=== PATIENT | male | born 1975 | race Caucasian/White ===

== ENCOUNTER 2019-08-08 08:17 | Day surgery (SDC) | payer OTHER ==
[2019-08-07 17:01] VITALS: BMI 48.6
[2019-08-08] MEDS ORDERED: LIDOCAINE 1%-EPI 1:100,000 30 ML MDV IJ ONE (08:39)
[2019-08-08] MEDS ORDERED: LIDOCAINE HCL 1%, 10 MG/ML (20ML VIAL) ONE (08:42)
[2019-08-08] MEDS ORDERED: LIDOCAINE HCL 1% EPINEPHRINE 1:200,000 30 ML VIAL (PF) ONE (10:55)
[2019-08-08] MEDS ORDERED: LIDOCAINE HCL/PF 2% SDV 5ML VIAL ONE (11:16)
[2019-08-08] MEDS ORDERED: MIDAZOLAM HCL 2 MG/2 ML SINGLE DOSE VIAL ONE ×3 (11:17→11:39)
[2019-08-08] MEDS ORDERED: PROPOFOL 20 ML ONE ×2 (11:17)
[2019-08-08] MEDS ORDERED: ceFAZolin SODIUM 1 GM VIAL ONE (11:23)
[2019-08-08] MEDS ORDERED: ceFAZolin SODIUM 1 GM VIAL IVPB ONE (11:26)
[2019-08-08] MEDS ORDERED: BUPIVACAINE HCL/PF 0.5% (5MG/ML) 10 ML VIAL IJ ONE ×2 (11:30)
[2019-08-08] MEDS ORDERED: KETOROLAC TROMETHAMINE 30 MG/1 ML VIAL ONE (11:57)
[2019-08-08] MEDS ORDERED: ONDANSETRON 4 MG/2 ML VIAL IVPUSH PRN (12:39)
[2019-08-08] MEDS ORDERED: oxyCODONE HCL 5 MG TABLET PO PRN (12:39)
[2019-08-08] MEDS ORDERED: LACTATED RINGERS SOLUTION 1,000 ML IV SCH (12:45)
[2019-08-08 13:48] VITALS: TEMP 98
[2019-08-08 15:00] VITALS: BP 130/80; PULSE 90
--- NOTE | 2019-08-08 20:06 | OP ---
DATE OF OPERATION: 08/08/2019 SURGEON: Grzegorz Harris DPM PREOPERATIVE DIAGNOSIS: M21.61--right bunion with hallux valgus. POSTOPERATIVE DIAGNOSIS: M21.61--right bunion with hallux valgus. PROCEDURE: 29760--Ouxoc bunionectomy with ligament transfer. ANESTHESIA: General. DESCRIPTION OF PROCEDURE: Under general anesthesia and the surgical scrub with Betadine scrub and solution x2, the patient was draped using sterile technique. After 3 minute of right limb elevation, a right ankle tourniquet was inflated to 250 mmHg pressure for 60 minutes. Inspection of the right foot showed a large bunion with hallux valgus with significant exostosis on the dorsum of the bunion. Using a No. 15 surgical blade, a linear longitudinal incision was made on the right foot over the first metatarsophalangeal joint. The incision was deepened through fascia and retracted. The extensor brady apparatus was longitudinally incised and reflected laterally and then the joint capsule was dorsally excised in a longitudinal fashion. Medial and lateral sesamoid ligaments were cut and the head of the first metatarsal and first metatarsophalangeal joint were exposed in the wound. Using a McGlamry elevator, the plantar plate attachments were sectioned from the anatomic neck of the first metatarsal and the adductor hallucis tendon and conjoint ligament were sectioned from the lateral attachments to the fibular sesamoid. Inspection of the joint showed significant chondromalacia and some gouty tophus formation on the dorsal lateral and medial surfaces of the first metatarsal head. A large medial eminence was prominent along with a large dorsal spurring at the metatarsal head. Using a sagittal saw, the large medial eminence and the dorsal spurring were resected. The bone was rasped smooth and then the wound was copiously irrigated with sterile saline. Judging by the position of the first metatarsal relative to the second, it was decided not to osteotomize the bone, but to convert the procedure to a bunionectomy with soft tissue correction. The joint capsule was reapproximated and closed over the first metatarsophalangeal joint but prior to doing so a drill hole was placed in the anatomic neck cortical bone of the first metatarsal and then the medial joint capsule was transpositioned more proximally to hold the toe in a more rectus position. A drill hole was placed through the bone and using FiberTape the joint capsule was sutured in a new corrected position. The hallux now in normal anatomic position and the joint capsule completely repaired, the long extensor tendon was positioned in a normal anatomic position and sutured with 3-0 Vicryl suture. Range of motion was tested at the first metatarsophalangeal joint and was found to be improved with passive dorsiflexion of approximately 65 degree with respect to the plantar aspect of foot. The superficial fascia was reapproximated and closed with 4-0 Vicryl suture and then skin was reapproximated and closed with 4-0 nylon simple interrupted sutures. The ankle tourniquet was deflated after 60 minutes of inflation. Vascular perfusion immediately returned to all 5 digits, so a dry sterile dressing was applied to the right foot. The patient tolerated the surgical procedure well and left the operating room stable, alert, awake and in no pain. KAMRAN KRUSE/[id number]
--- NOTE | 2019-08-09 16:27 | PATH ---
Surgical Pathology Report Patient Name: MARIA E PINO [facility]. Rec. #: [id number] /Age/Gender: 1975 (Age: 44) / M Account: [id number] Location: [facility] SURGICAL Taken: 08/08/2019 Received: 08/08/2019 Reported: 08/09/2019 Physicians: Grzegorz Harris M.D. Specimen(s) Received RIGHT FOOT BUNIONECTOMY Clinical History Right bunion Final Diagnosis RIGHT METATARSAL BUNION, RESECTION: PORTIONS OF CARTILAGE AND BONE WITH DEGENERATIVE CHANGE. FIBROCONNECTIVE TISSUE WITH FIBROSIS. Electronically Signed Natali Lopez M.D. Gross Description Received in formalin labeled "right metatarsal bunion," is a 4.5 x 3.0 x 0.5 cm aggregate of stone bone and soft tissue fragments. Axle Polisher sections are submitted in one cassette, following decalcification. /08/08/2019 saudi/08/08/2019
== END 2019-08-08 14:30 | disposition home or self-care (01) ==
LOC: JASU-SURG 08:17
PROVIDERS: ATTEND Podiatrist Foot Surgery
PROC: 0LXV0ZZ Transfer Right Foot Tendon, Open Approach (ICD-10-PCS; 2019-08-08)
PROC: 0QSN04Z Reposition Right Metatarsal with Internal Fixation Device, Open Approach (ICD-10-PCS; principal; 2019-08-08 11:00)
DX: M20.11 Hallux valgus (acquired), right foot (principal); M21.611 Bunion of right foot
CPT/HCPCS: 88304-TC; 88311-TC; 94760

== ENCOUNTER 2020-04-15 11:46 | Emergency (ER) | payer OTHER ==
--- NOTE | 2020-04-15 11:49 | PDOC ---
History of Present Illness - General Chief Complaint: Bleeding from Anus Stated Complaint: RECTAL BLEED Time Seen by Provider: 04/15/20 11:49 - History of Present Illness Initial Comments: 04/15/20 14:06 Chief complaint: Bright red blood per rectum HPI: Patient noted bright red blood dripping from rectum this morning while he w as on the toilet. He denies straining, states that the stool is soft, and has no rectal pain. He has had hemorrhoids in the past. Review of systems: No lightheadedness, dizziness, palpitations, visual or focal neurologic symptoms, unsteadiness of gait. No chest pain, shortness of breath, abdominal pain, nausea, vomiting, diarrhea or constipation, urinary tract symptoms. Past medical history: Left kidney cancer with surgical removal part of the kidney, high blood pressure, elevated cholesterol, morbid obesity, peptic ulcer disease, bunionectomy, rotator cuff surgery x2, hernia repair. Social/family history reviewed and noncontributory Physical exam: Alert and oriented, obese, no acute distress, cooperative Afebrile, vital signs normal except for mild blood pressure elevation No pallor or icterus. PERRLA, conjunctivae clear, ENT clear Neck supple without bruit mass or nodes Lungs clear CV regular without murmur rub or gallop. 90 and regular. Abdomen soft, nontender, without mass or organomegaly. No CVAT Rectal exam: There is an ulcerated external hemorrhoid at 9:00. Small amount of serosanguineous fluid, no diogo bleeding. No masses or tenderness on internal exam. Stool light brown. Impression: Bright red blood per rectum, most likely from ulcerated hemorrhoid is visualized Plan: CBC and stool guaiac. Further evaluation and treatment depending on results Past History - Medical History Allergies/Adverse Reactions: Allergies Allergy/AdvReac Type Severity Reaction Status Date / Time No Known Drug Allergies Allergy Verified 04/15/20 11:53 Home Medications: Ambulatory Orders Losartan Potassium [Cozaar] 100 mg PO DAILY 05/20/14 Amlodipine Besylate [Norvasc -] 1 tab PO DAILY 09/01/14 Azathioprine 50 mg PO QID 07/02/19 Hydroxychloroquine Sulfate 50 mg PO TID 07/02/19 Morphine Sulfate [Morphine Sulfate ER] 60 mg PO BID 07/02/19 Pantoprazole Sodium 40 mg PO DAILY 07/02/19 Morphine *Immediate Release* [Msir -] 30 mg PO Q4H 08/08/19 Anemia: Yes Asthma: No Cancer: No Cardiac Disorders: No CVA: No COPD: No (Sarcoidosis) CHF: No Dementia: No Diabetes: No GI Disorders: Yes (BLEEDING ULCER) Disorders: No HTN: No Hypercholesterolemia: No Liver Disease: Yes (ELEVATED LIVER ENZYMES) Seizures: No Thyroid Disease: No - Surgical History Abdominal Surgery: Yes (RIGHT HERNIA REPAIR) Appendectomy: No Cardiac Surgery: No Cholecystectomy: No Lung Surgery: No Neurologic Surgery: No Orthopedic Surgery: Yes (ROTATOR CUFF - LEFT) - Psycho-Social/Smoking History Smoking History: Never smoked ED Treatment Course - LABORATORY CBC & Chemistry Diagram: 04/15/20 13:00 Medical Decision Making - Medical Decision Making 04/15/20 14:05 H&H 11 and 32. Stool light brown, guaiac negative. No sign of active bleeding on exam. Discharge - Discharge Information Problems reviewed: Yes Clinical Impression/Diagnosis: Ulcerated external hemorrhoids Condition: Stable Disposition: HOME - Admission No - Follow up/Referral Referrals: Timoteo Mcmahon MD [Staff Physician] - 1 week - Patient Discharge Instructions Patient Printed Discharge Instructions: DI for Hemorrhoids Additional Instructions: Wear tight fitting underwear with a bulky pad to apply pressure if the bleeding persists. Keep stool soft and avoid straining to avoid further irritation. May use a stool softener, Bene fiber, or fiber rich foods. To keep the pressure in that area low, stay off your feet today is much as possible. Follow-up with primary physician or Dr. Mcmahon, surgeon, if bleeding persists or pain develops. Return to the ER immediately if bleeding is more heavy or there are other symptoms such as lightheadedness, dizziness, chest pain, shortness of breath, or abdominal pain. - Post Discharge Activity
--- OUTSIDE RECORDS SUMMARY | 2020-04-15 11:58 | XMS ---
:1975 Author Organization [facility] Support Name Relationship Address Phone [employer] Unavailable [address] [place] [address] [employer] Unavailable [address] [place] [address] [place] [address] [address]IR[address] [place] [address] [employer] Unavailable Unavailable Unavailable [address] [place] [address] Re-disclosure Warning The records that you are about to access may contain information from federally- assisted alcohol or drug abuse programs. If such information is present, then the following federally mandated warning applies: This information has been disclosed to you from records protected by federal confidentiality rules (42 CFR part 2). The federal rules prohibit you from making any further disclosure of this information unless further disclosure is expressly permitted by the written consent of the person to whom it pertains or as otherwise permitted by 42 CFR part 2. A general authorization for the release of medical or other information is NOT sufficient for this purpose. The Federal rules restrict any use of the information to criminally investigate or prosecute any alcohol or drug abuse patient.The records that you are about to access may contain highly sensitive health information, the redisclosure of which is protected by Article 27-F of the [facility] Public Health law. If you continue you may haveaccess to information: Regarding HIV / AIDS; Provided by facilities licensed or operated by the [facility] Office of Mental Health; or Provided by the [facility] Office for People With Developmental Disabilities. If such information is present, then the following [facility] mandated warning applies: This information has been disclosed to you from confidential records which are protected by state law. State law prohibits you from making any further disclosure of this information without the specific written consent of the person to whom it pertains, or as otherwise permitted by law. Any unauthorized further disclosure in violation of state law may result in a fine or shelter sentence or both. A general authorization for the release of medical or other information is NOT sufficient authorization for further disclosure. Insurance Providers Payer name Policy type Policy ID Covered Covered democrat's Policy P pushpa / Coverage democrat ID relationship to Live Inf ormation type live [facility] [id number] [place] [id number] PLANS [place] [id number] 1 [id number] 1 [facility] [id number] [place] [id number] PLAN HMO Results ID Date Data Source [id number] 01/07/2020 12:46:00 PM EDT [facility] Name Value Range Interpretation Code Description Data Yajaira rce(s) Supporting Document(s ) SARS-COV-2 [facility] PCR This lab was ordered by [facility] [address] [facility] and reported by [facility]. Procedure
[2020-04-15 12:03] VITALS: BP 151/104; PULSE 104; TEMP 98.9; BMI 45.6
[2020-04-15 13:22] LABS: HEMATOCRIT 32.9 % (35.4-49); HEMOGLOBIN 11.2 GM/dl (11.7-16.9); MCH 29.9 pg (25.7-33.7); MCHC 34.1 g/dl (32.0-35.9); MEAN CELL VOLUME 87.7 fl (80-96); MEAN PLT VOLUME 7.2 fl (7.5-11.1); PLATELET COUNT 321 K/MM3 (134-434); RBC 3.76 M/mm3 (4.00-5.60); RDW 21.5 % (11.9-15.9); WHITE BLOOD COUNT 3.1 K/mm3 (4.0-10.8)
[2020-04-15 13:26] LABS: ADD RBC MORPHOLOGY YES
[2020-04-15 14:18] LABS: ANISOCYTOSIS 2+; PLATELET ESTIMATE ADEQUATE
== END 2020-04-15 13:14 | disposition home or self-care (01) ==
LOC: FER 11:46
DX: K64.8 Other hemorrhoids (principal)
CPT/HCPCS: 36415; 82272; 85025; 99283-25

== ENCOUNTER 2020-08-27 05:23 | Day surgery (SDC) | payer OTHER ==
[2020-08-26 09:52] VITALS: BMI 47.1
[2020-08-27 09:40] VITALS: TEMP 97.8
[2020-08-27 10:12] VITALS: BP 116/73; PULSE 89
== END 2020-08-27 10:03 | disposition home or self-care (01) ==
LOC: JASU-ENDO 05:23
PROVIDERS: ATTEND Internal Medicine Gastroenterology
PROC: 0DBK8ZX Excision of Ascending Colon, Via Natural or Artificial Opening Endoscopic, Diagnostic (ICD-10-PCS; 2020-08-27)
PROC: 0DBK8ZX Excision of Ascending Colon, Via Natural or Artificial Opening Endoscopic, Diagnostic (ICD-10-PCS; principal; 2020-08-27 09:00)
DX: Z12.11 Encounter for screening for malignant neoplasm of colon (principal); D12.2 Benign neoplasm of ascending colon; Z86.010 Personal history of colon polyps; Z80.0 Family history of malignant neoplasm of digestive organs; K64.8 Other hemorrhoids
CPT/HCPCS: 88305-TC

== ENCOUNTER 2023-09-07 17:28 | Inpatient (IN) | payer OTHER ==
[2023-09-07 17:35] VITALS: BMI 48.6
[2023-09-07] MEDS ORDERED: dilTIAZem HCL 125 MG/25 ML - 25 ML VIAL ONE ×2 (18:09→19:34)
[2023-09-07] MEDS: dilTIAZem HCL 50 MG/10 ML - 10 ML VIAL IVPUSH ONE ×2 (18:30→19:41)
[2023-09-07 18:46] LABS: HEMATOCRIT 40.9 % (35.4-49); HEMOGLOBIN 13.6 G/dL (11.7-16.9); MCH 28.1 pg (25.7-33.7); MCHC 33.3 g/dl (32.0-35.9); MEAN CELL VOLUME 84.2 fl (80-96); MEAN PLT VOLUME 9.2 fl (7.5-11.1); PLATELET COUNT 191.7 10^3/uL (134-434); RBC 4.86 10^6/uL (4.00-5.60); RDW 15.5 % (11.9-15.9); WHITE BLOOD COUNT 6.5 10^3/uL (4.0-10.8)
[2023-09-07 19:01] LABS: PLATELET ESTIMATE ADEQUATE
[2023-09-07 20:49] LABS: ALBUMIN 4.6 g/dl (3.4-5.0); CALCIUM 9.7 mg/dl (8.5-10.1); CREATININE 1.2 mg/dl (0.6-1.3); POTASSIUM 4.2 mmol/L (3.5-5.1)
[2023-09-07 20:50] LABS: BILIRUBIN,TOTAL 0.7 mg/dl (0.2-1)
[2023-09-07] MEDS ORDERED: dilTIAZem HCL 30 MG TABLET ONE (20:52)
[2023-09-07] MEDS: dilTIAZem HCL 60 MG TABLET PO ONE (20:55)
[2023-09-07 21:01] LABS: N-TERMINAL BNP 1879.7 pg/ml (5-125)
[2023-09-07] MEDS ORDERED: morphine SULFATE IMMEDIATE RELEASE 30 MG TAB ONE (23:39)
[2023-09-07] MEDS: morphine SULFATE IMMEDIATE RELEASE 30 MG TAB PO ONE (23:40)
[2023-09-08] MEDS: FUROSEMIDE 40 MG TABLET (FP) PO ONE (02:35)
[2023-09-08] MEDS: LOSARTAN POTASSIUM 50 MG TABLET PO ONE (05:38)
[2023-09-08] MEDS: FUROSEMIDE 40 MG TABLET (FP) PO SCH (05:38)
[2023-09-08] MEDS: INSULIN ASPART SLIDING SCALE (NOVOLOG) 1 VIAL SQ SCH (06:26)
[2023-09-08 06:50] LABS: BASO % 0.8 % (0-2.0); EOS % 5.3 % (0-4.5); HEMATOCRIT 39.2 % (35.4-49); HEMOGLOBIN 13.1 GM/dL (11.7-16.9); MCH 27.9 pg (25.7-33.7); MCHC 33.3 g/dl (32.0-35.9); MEAN CELL VOLUME 83.8 fl (80-96); MEAN PLT VOLUME 8.9 fl (7.5-11.1); MONO % 11.2 % (3.8-10.2); NEUT % 59.7 % (42.8-82.8); PLATELET COUNT 181 10^3/uL (134-434); RBC 4.68 M/mm3 (4.00-5.60); RDW 14.8 % (11.9-15.9); WHITE BLOOD COUNT 5.3 K/mm3 (4.0-10.0)
[2023-09-08 06:58] LABS: POTASSIUM 3.8 mmol/L (3.5-5.1)
[2023-09-08 07:06] LABS: ALBUMIN 3.4 g/dl (3.4-5.0); BLOOD UREA NITROGEN 19.7 mg/dL (7-18); CALCIUM 8.9 mg/dL (8.5-10.1); MAGNESIUM 1.8 mg/dL (1.8-2.4)
[2023-09-08 07:09] LABS: CREATININE 1.1 mg/dL (0.55-1.3); PHOSPHOROUS 3.8 mg/dL (2.5-4.9)
[2023-09-08 07:11] LABS: TOT PROT 6.3 g/dl (6.4-8.2)
[2023-09-08 07:29] LABS: BILIRUBIN,TOTAL 0.7 mg/dL (0.2-1)
[2023-09-08] MEDS ORDERED: HYDROCHLOROTHIAZIDE 25 MG TABLET (FP) PO SCH (10:00)
[2023-09-08] MEDS: METOPROLOL TARTRATE 5 MG/5 ML VIAL IVPUSH ONE ×2 (10:05→13:29)
[2023-09-08] MEDS: amLODIPine BESYLATE 10 MG TABLET (FP) PO SCH (10:05)
[2023-09-08] MEDS: PANTOPRAZOLE 40 MG TABLET PO SCH (10:05)
[2023-09-08] MEDS: APIXABAN 5 MG TABLET PO SCH (10:05)
[2023-09-08] MEDS ORDERED: METOPROLOL TARTRATE 50 MG TABLET (FP) PO SCH ×2 (14:00→22:00)
[2023-09-08] MEDS: METOPROLOL TARTRATE 5 MG/5 ML VIAL IVPUSH PRN (14:19)
[2023-09-08] MEDS: FUROSEMIDE 40 MG/4 ML INJECTABLE VIAL IVPUSH SCH (14:19)
[2023-09-08] MEDS ORDERED: ACETAMINOPHEN 500 MG TABLET (FP) PO PRN (14:35)
[2023-09-08] MEDS: METOPROLOL TARTRATE 50 MG TABLET (FP) PO ONE (14:38)
[2023-09-08] MEDS: PATIENT'S OWN MEDICATION (NON-FORMULARY) (Gabapentin [Gralise] 900 MG Tab.Er.24h) PO SCH (15:23)
[2023-09-08] MEDS: morphine SULFATE IMMEDIATE RELEASE 30 MG TAB PO SCH (15:24)
[2023-09-08] MEDS: GABAPENTIN 400 MG CAPSULE PO SCH (15:53)
[2023-09-08] MEDS: ACETAMINOPHEN 500 MG TABLET (FP) PO ONE (15:54)
[2023-09-08] MEDS: dilTIAZem HCL 50 MG/10 ML - 10 ML VIAL IVPUSH ONE (16:37)
[2023-09-08] MEDS ORDERED: dilTIAZem HCL 50 MG/10 ML - 10 ML VIAL IVPUSH SCH ×2 (17:00→23:00)
[2023-09-08] MEDS: dilTIAZem HCL 50 MG/10 ML - 10 ML VIAL IVPUSH SCH (18:57)
[2023-09-08] MEDS ORDERED: PATIENT'S OWN MEDICATION (NON-FORMULARY) (Gabapentin [Gabapentin] 800 MG Tablet) PO SCH (22:00)
[2023-09-08] MEDS: morphine SULFATE IMMEDIATE RELEASE 30 MG TAB PO PRN (22:07)
[2023-09-09 06:22] LABS: HEMATOCRIT 41.2 % (35.4-49); HEMOGLOBIN 13.7 GM/dL (11.7-16.9); MCH 27.9 pg (25.7-33.7); MCHC 33.2 g/dl (32.0-35.9); MEAN CELL VOLUME 83.8 fl (80-96); MEAN PLT VOLUME 8.4 fl (7.5-11.1); PLATELET COUNT 183 10^3/uL (134-434); RBC 4.92 M/mm3 (4.00-5.60); RDW 14.8 % (11.9-15.9); WHITE BLOOD COUNT 5.5 K/mm3 (4.0-10.0)
[2023-09-09 06:34] LABS: POTASSIUM 3.4 mmol/L (3.5-5.1)
[2023-09-09 06:37] LABS: CALCIUM 9.1 mg/dL (8.5-10.1)
[2023-09-09 06:38] LABS: ALBUMIN 3.4 g/dl (3.4-5.0); BLOOD UREA NITROGEN 21.5 mg/dL (7-18); MAGNESIUM 1.9 mg/dL (1.8-2.4)
[2023-09-09 06:41] LABS: CREATININE 1.2 mg/dL (0.55-1.3); PHOSPHOROUS 4.4 mg/dL (2.5-4.9)
[2023-09-09 06:43] LABS: BILIRUBIN,TOTAL 0.8 mg/dL (0.2-1); TOT PROT 6.3 g/dl (6.4-8.2)
[2023-09-09] MEDS: dilTIAZem HCL 60 MG TABLET PO SCH (09:56)
[2023-09-09] MEDS: POTASSIUM CHLORIDE ORAL LIQUID 20 MEQ/15 ML PO ONE (09:57)
[2023-09-09] MEDS ORDERED: LOSARTAN POTASSIUM 50 MG TABLET PO SCH (10:00)
[2023-09-09] MEDS ORDERED: dilTIAZem HCL 25 MG/5 ML - 5 ML VIAL ONE (14:14)
[2023-09-09] MEDS: hydrOXYzine PAMOATE 50 MG CAPSULE (FP) PO ONE (14:18)
[2023-09-09] MEDS: FUROSEMIDE 40 MG TABLET (FP) PO SCH (14:19)
[2023-09-09 21:12] LABS: COCAINE, UR NEGATIVE (NEGATIVE); METHADONE, UR NEGATIVE (NEGATIVE); URINE BARBITURATES NEGATIVE (NEGATIVE)
[2023-09-09 21:13] LABS: PHENCYCLIDINE,URINE NEGATIVE (NEGATIVE); URINE BENZODIAZEPINES NEGATIVE (NEGATIVE)
[2023-09-09] MEDS: SACUBITRIL/VALSARTAN 49 MG-51 MG TABLET PO SCH (21:13)
[2023-09-09 21:15] LABS: OPIATES, URI POSITIVE (NEGATIVE); URINE AMPHETAMINES NEGATIVE (NEGATIVE)
[2023-09-10] MEDS ORDERED: dilTIAZem HCL 60 MG TABLET PO SCH (06:50)
[2023-09-10 10:16] LABS: HEMATOCRIT 41.3 % (35.4-49); HEMOGLOBIN 13.7 GM/dL (11.7-16.9); MCH 27.8 pg (25.7-33.7); MCHC 33.2 g/dl (32.0-35.9); MEAN CELL VOLUME 83.8 fl (80-96); MEAN PLT VOLUME 8.5 fl (7.5-11.1); PLATELET COUNT 213 10^3/uL (134-434); RBC 4.92 M/mm3 (4.00-5.60); RDW 15.1 % (11.9-15.9); WHITE BLOOD COUNT 7.3 K/mm3 (4.0-10.0)
[2023-09-10 10:47] LABS: POTASSIUM 3.3 mmol/L (3.5-5.1)
[2023-09-10 10:49] LABS: ALBUMIN 3.5 g/dl (3.4-5.0); BLOOD UREA NITROGEN 21.6 mg/dL (7-18); CALCIUM 8.7 mg/dL (8.5-10.1); MAGNESIUM 1.8 mg/dL (1.8-2.4)
[2023-09-10 10:52] LABS: CREATININE 1.4 mg/dL (0.55-1.3)
[2023-09-10 10:53] LABS: PHOSPHOROUS 3.8 mg/dL (2.5-4.9)
[2023-09-10 10:54] LABS: BILIRUBIN,TOTAL 0.7 mg/dL (0.2-1); TOT PROT 6.6 g/dl (6.4-8.2)
[2023-09-10] MEDS ORDERED: POTASSIUM CHLORIDE ORAL LIQUID 20 MEQ/15 ML PO ONE (11:09)
[2023-09-10] MEDS: POTASSIUM CHLORIDE ORAL LIQUID 20 MEQ/15 ML PO ONE (11:25)
[2023-09-10] MEDS: MAGNESIUM SULFATE IN WATER 2 GM/50 ML IVPB IVPB ONE (11:25)
[2023-09-10] MEDS ORDERED: TRIMETHOBENZAMIDE HCL 200MG/2ML INJ IM ONE (21:22)
[2023-09-10] MEDS: SACUBITRIL/VALSARTAN 24 MG-26 MG TABLET PO SCH (22:37)
[2023-09-10] MEDS: DOCUSATE SODIUM 100 MG CAPSULE (FP) PO ONE (22:59)
[2023-09-11] MEDS ORDERED: INSULIN (NOVOLOG) ASPART 100 UNITS/ML 10ML VIAL ONE ×2 (05:59→11:22)
[2023-09-11] MEDS: METOPROLOL TARTRATE 25 MG TABLET (FP) PO ONE (06:45)
[2023-09-11 07:54] LABS: HEMATOCRIT 42.4 % (35.4-49); HEMOGLOBIN 14.5 GM/dL (11.7-16.9); MCH 28.3 pg (25.7-33.7); MCHC 34.2 g/dl (32.0-35.9); MEAN CELL VOLUME 82.7 fl (80-96); MEAN PLT VOLUME 8.5 fl (7.5-11.1); PLATELET COUNT 208 10^3/uL (134-434); RBC 5.13 M/mm3 (4.00-5.60); RDW 15.3 % (11.9-15.9); WHITE BLOOD COUNT 5.7 K/mm3 (4.0-10.0)
[2023-09-11 08:14] LABS: POTASSIUM 3.7 mmol/L (3.5-5.1)
[2023-09-11 08:16] LABS: CALCIUM 8.5 mg/dL (8.5-10.1)
[2023-09-11 08:18] LABS: ALBUMIN 3.4 g/dl (3.4-5.0); BLOOD UREA NITROGEN 18.9 mg/dL (7-18); MAGNESIUM 2.2 mg/dL (1.8-2.4)
[2023-09-11 08:21] LABS: BILIRUBIN,TOTAL 0.6 mg/dL (0.2-1); CREATININE 1.3 mg/dL (0.55-1.3); PHOSPHOROUS 3.7 mg/dL (2.5-4.9); TOT PROT 6.3 g/dl (6.4-8.2)
[2023-09-11] MEDS: FUROSEMIDE 40 MG TABLET (FP) PO SCH (09:30)
[2023-09-11] MEDS: METOPROLOL TARTRATE 25 MG TABLET (FP) PO SCH ×2 (11:20→17:44)
[2023-09-12 07:36] LABS: HEMATOCRIT 43.3 % (35.4-49); HEMOGLOBIN 14.4 GM/dL (11.7-16.9); MCHC 33.2 g/dl (32.0-35.9); MEAN CELL VOLUME 84.4 fl (80-96); MEAN PLT VOLUME 9.1 fl (7.5-11.1); PLATELET COUNT 204 10^3/uL (134-434); RBC 5.13 M/mm3 (4.00-5.60); RDW 15.3 % (11.9-15.9); WHITE BLOOD COUNT 6.1 K/mm3 (4.0-10.0)
[2023-09-12 07:47] LABS: POTASSIUM 3.7 mmol/L (3.5-5.1)
[2023-09-12 07:50] LABS: ALBUMIN 3.2 g/dl (3.4-5.0); BLOOD UREA NITROGEN 20.6 mg/dL (7-18); CALCIUM 8.5 mg/dL (8.5-10.1)
[2023-09-12 07:52] LABS: MAGNESIUM 2.1 mg/dL (1.8-2.4)
[2023-09-12 07:54] LABS: CREATININE 1.2 mg/dL (0.55-1.3); PHOSPHOROUS 3.5 mg/dL (2.5-4.9)
[2023-09-12 07:56] LABS: BILIRUBIN,TOTAL 0.6 mg/dL (0.2-1); TOT PROT 6.2 g/dl (6.4-8.2)
[2023-09-12 08:39] VITALS: BP 112/85; PULSE 96; RESP 20; TEMP 97.8
== END 2023-09-12 13:00 | disposition home or self-care (01) | DRG 291 ==
LOC: FER 17:28 → J2W 09-08 00:30
PROVIDERS: ADMIT Student in an Organized Health Care Education/Training Program; ATTEND Internal Medicine
DX: I11.0 Hypertensive heart disease with heart failure (principal); I50.21 Acute systolic (congestive) heart failure; Z68.42 Body mass index [BMI] 45.0-49.9, adult; E66.9 Obesity, unspecified; I48.91 Unspecified atrial fibrillation; E11.9 Type 2 diabetes mellitus without complications
CPT/HCPCS: 0241U-QW; 36415; 71045-TC-FY; 80053; 80307; 82962; 83036; 83735; 83880; 84100; 84443; 84484; 85025; 85027; 93005; 93306-TC; 99285-25

== ENCOUNTER 2024-04-25 05:34 | Day surgery (SDC) | payer OTHER ==
[2024-04-23 12:03] VITALS: BMI 42.5
[2024-04-25 08:52] VITALS: TEMP 98.1
[2024-04-25 09:14] VITALS: RESP 20
[2024-04-25 09:20] VITALS: BP 112/72; PULSE 89
== END 2024-04-25 09:41 | disposition home or self-care (01) ==
LOC: JASU-ENDO 05:34
PROVIDERS: ATTEND Internal Medicine Gastroenterology
PROC: 0DBH8ZX Excision of Cecum, Via Natural or Artificial Opening Endoscopic, Diagnostic (ICD-10-PCS; principal; 2024-04-25 08:00)
DX: Z12.11 Encounter for screening for malignant neoplasm of colon (principal); K63.5 Polyp of colon; K64.8 Other hemorrhoids; K57.30 Diverticulosis of large intestine without perforation or abscess without bleeding
CPT/HCPCS: 82962; 88305-TC